=== PATIENT | male | born 1965 | race Caucasian/White ===

== ENCOUNTER 2020-02-10 17:10 | Emergency (ER) | payer OTHER ==
[~2020-02-10] VITALS: Ht 172.7 cm; Wt 87.1 kg
[2020-02-10 17:32] VITALS: BP 148/99
[2020-02-10] MEDS ORDERED: BACTRIM DS TAB1 EACH PO (18:44)
[2020-02-10] MEDS ORDERED: MUPIROCIN15 GM TOP (18:44)
== END 2020-02-10 18:46 | disposition home or self-care (01) ==
LOC: ER 17:10
DX: L08.9 Local infection of the skin and subcutaneous tissue, unspecified (principal); B95.8 Unspecified staphylococcus as the cause of diseases classified elsewhere; Z88.8 Allergy status to other drugs, medicaments and biological substances

== ENCOUNTER 2020-02-13 17:57 | Emergency (ER) | payer OTHER ==
[~2020-02-13] VITALS: Ht 172.7 cm; Wt 87.1 kg
[~2020-02-13 17:57] MED LIST: BACTRIM DS TAB1 EACH PO; MUPIROCIN15 GM TOP
[2020-02-13 18:08] VITALS: BP 128/74
== END 2020-02-13 19:03 | disposition home or self-care (01) ==
LOC: ER 17:57
DX: L01.00 Impetigo, unspecified (principal); Z02.79 Encounter for issue of other medical certificate; R11.0 Nausea; Z79.2 Long term (current) use of antibiotics; Z88.8 Allergy status to other drugs, medicaments and biological substances

== ENCOUNTER 2020-04-02 14:44 | Emergency (ER) | payer OTHER ==
[~2020-04-02] VITALS: Ht 172.7 cm; Wt 87.1 kg
[2020-04-02] MEDS ORDERED: METOPROLOL TART25 MG PO (14:48)
[2020-04-02] MEDS ORDERED: PRINIVIL20 M1 PO (14:48)
[2020-04-02 15:49] LABS: HEMATOCRIT 43.8 % (42.0-52.0); HEMOGLOBIN 14.8 gm/dL (14.0-18.0); MCH 30.7 pg (26.0-34.0); MCHC 33.8 g/dL (28.0-37.0); MCV 90.7 fL (80.0-100.0); PLATELET COUNT 213 thou/uL (150-400); RBC 4.82 mil/uL (4.50-6.00); RDW 13.4 % (10.5-14.5); WBC 5.8 thou/uL (4.0-11.0)
[2020-04-02 16:01] LABS: CALCIUM 9.5 mg/dL (8.5-10.1); CREATININE 1.1 mg/dL (0.7-1.3); POTASSIUM 4.3 mmol/L (3.5-5.1)
[2020-04-02 16:13] LABS: ABSOLUTE NEUTROPHILS 3.5 thou/uL (1.4-8.2); PLATELET ESTIMATE NORMAL
[2020-04-02 19:22] VITALS: BP 129/84
== END 2020-04-02 19:10 | disposition home or self-care (01) ==
LOC: ER 14:44
PROVIDERS: Nurse Practitioner
DX: M79.671 Pain in right foot (principal); M79.672 Pain in left foot; L85.3 Xerosis cutis; F15.90 Other stimulant use, unspecified, uncomplicated; Z79.899 Other long term (current) drug therapy; Z88.8 Allergy status to other drugs, medicaments and biological substances